=== PATIENT | male | born 1975 | race Caucasian/White ===

== ENCOUNTER 2025-02-09 15:14 | Emergency (ER) | payer OTHER, SELFPAY ==
--- OUTSIDE RECORDS SUMMARY | 2010-08-19 10:00 | XMS_ITS | Continuity of Care Document ---
Author Organization Formerly [facility] Address [address] [place] [phone] Phone Care Team Providers Care Produce Manager Name Role Phone Unavailable Unavailable Unavailable Allergies, Adverse Reactions, Alerts Substance Reaction Status Criticality No Known Allergies Active No Inform ation Medications Medication Instructions Dosage Effective Dates (start - stop) Status Comments promethazine 25 mg Tab take 1/2-1 TID prn nausea as needed 25 MG - Active Lexapro 10 mg Tab take 1 tablet (10MG) by ORAL route every day 10 MG - No Longer Active Procedures Procedure Date OFFICE/OUTPATIENT VISIT, EST Called In Prescription Advance Directives Directive Yes / No Effective Date File Name Resuscitation Not Answered N/A N/A Life Support Not Answered N/A N/A Intubation Not Answered N/A N/A Antibiotics Not Answered N/A N/A IV Fluid Support Not Answered N/A N/A Tube Feed Not Answered N/A N/A Other Directive N/A N/A WARNING:The information contained in this section is historical and is provided for information only and does not constitute a legal document or any assurance that the information is still accurate. Please verify the information with the aguero of the legal document before using it for clinical purposes. Encounters Encounter Description Practice Location Reason(s) For Visit Diagnoses Date Provider Providers Copied on Encounter OFFICE/OUTPA TIENT VISIT, EST [facility], [address] [place] [address], [id number], [place] tel:[phone] [facility] ([facility]) aches (chief complaint) Colitis, enteritis, and gastroenteritis of presumed infectious origin 1 No Information [facility], [address], [place], [place], [id number], [place] tel:[phone] [facility] No Information 0 No Information Family History Family Member Type Diagnosis Age At Onset Father Problem (finding) hypertension Maternal grandfather Problem (finding) Myocardial infa rction Father Problem (finding) diabetes melli tus in first degree relative Paternal grandfather Problem (finding) malignant neopl asm of lung Father Problem (finding) Myocardial infarction Payers Payer name Insurance type Covered democrat ID Authoriza tion(s) [facility] [id number] Social History Type Description Quantity Date Captured Comments Alcohol Use Details No Caffeine Use Details soda 24 oz per day Tobacco Use Status No Information Smoking Status No Information Sex Male Vital Signs Date / Time: Height Weight BMI Pulse Rate Blood Pressure Temperature Respiratory Rate Body Surface Area Head Circumference Head Circ. Percentile Wt./Claude. Percentile BMI percentile Pulse Ox Inhaled Ox 2:25 PM 68.50 in 176.00 lbs 26.3 7 kg/m eter (2) 99 /min 145/92 mm[Hg] 98.10 F Chief Complaint And Reason For Visit From encounter dated '08/19/2010 14:00'. vomiting (chief complaint) aches (chief complaint) Reason For Referral Reason For Referral No Information Plan Of Treatment Date Type Action Status Goal Tobacco cessation counseling completed History Of Present Illness Encounter Date Complaint History Of Prese nt Illness No Information Functional Status Date Functional Assessmen t No Information Instructions Date Instruction Additional Infor mation Take new medication as prescribe d Rest Increase fluids Assessments Type Assessment Date No Information Mental Status Date Cognitive Assessment Orientation - [facility] ed to time, place, person, situation. Patient Care Teams Name Effective Dates (start - stop) Status Members No Information
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
--- OUTSIDE RECORDS SUMMARY | 2019-10-22 06:40 | XMS_ITS | Continuity of Care Document ---
Author Organization [facility] Address [address] [place] [address] Phone Care Team Providers Care Head Of Mathematics Name Role Phone John Rodriguez MD Unavailable Unavailable Medications Medication Instructions Dosage Effective Dates (start - stop) Status Comments Medrol (Anastacio) 4 mg tablets in a dose pack per package by Oral route as directed - Active Procedures Procedure Date NEW PATNT OV DTL EXAM X-RAY OF ELBOW 3 VIEWS X-RAY OF HAND 3 VIEW MIN. Advance Directives Directive Yes / No Effective Date File Name No Information Encounters Encounter Description Practice Location Reason(s) For Visit Diagnoses Date Provider Providers Copied on Encounter NEW PATNT OV DTL EXAM [facility], [address] [facility], [place], [place], [id number], [place] tel:[phone] [facility] left hand and elbow (chief complaint) Chronic gout of left hand, unspecified causeOlecranon bursitis of left elbow Michael Lopez. [address] [place] [address], [id number] , [place]. tel:[phone] Referring Provider: John Taylor, [address], [address] . tel:[phone] Family History Family Member Type Diagnosis Age At Onset Problem (finding) Family history of Arthr itis Problem (finding) Family history of Diabe ricardo mellitus Problem (finding) Family history of Cardi ovascular disease Payers Payer name Insurance type Covered constitution party ID Jacob patrick(s) BCBS [employer] [id number] Social History Type Description Quantity Date Captured Comments Alcohol Use Details Unknown Caffeine Use Details Unknown Tobacco Use Status Smoking Status Current every day smoker Non-Smoking Tobacco Use Details : No Details Available : No Details Available Sex Male Vital Signs Date / Time: Height Weight BMI Pulse Rate Blood Pressure Temperature Respiratory Rate Body Surface Area Head Circumference Head Circ. Percentile Wt./Claude. Percentile BMI percentile Pulse Ox Inhaled Ox 10:40 AM 67.00 in 90.718 kg (200.00 lbs) 31.3 2 kg/m eter (2) 2.07 meter(2) Chief Complaint And Reason For Visit From encounter dated '10/22/2019 10:40'. left hand and elbow (chief complaint) Reason For Referral Reason For Referral No Information Plan Of Treatment Date Type Action Status Referral Ordered: Danyel Rosen -Allopathic & Osteopathic Physicians : Internal Medicine : Cardiovascular Disease (related to Chronic gout of left hand, unspecified cause) ordered Referral Ordered: Danyel Rosen -Allopathic & Osteopathic Physicians : Internal Medicine : Cardiovascular Disease (related to Chronic gout of left hand, unspecified cause) ordered Referral Ordered: Ilda Weiss MD -Rheumatology (related to Chronic gout of left hand, unspecified cause) ordered Referral [facility]erred [facility]: [facility] [address] [place], [phone] Ordered: Referrals: Rheumatology. Ilda Weiss MD. Evaluate and treat ordered Referral Referred To: Danyel Rosen [address] [place] [address] [address] [place], [phone] Ordered: Referrals: Allopathic & Osteopathic Physicians : Internal Medicine : Cardiovascular Disease. Danyel Rosen. Location: [place]. Evaluate and treat ordered Referral Referred To: Danyel Rosen [address] [place] [address] [address] [place], [phone] Ordered: Referrals: Allopathic & Osteopathic Physicians : Internal Medicine : Cardiovascular Disease. Danyel Rosen ordered History Of Present Illness Encounter Date Complaint History Of Prese nt Illness left hand and elbow Functional Status Date Functional Assessmen t No Information Instructions Date Instruction Additional Infor joanne - Patient education available at [email or web address] on the Education tab Related to Olecranon bursitis of left elbow - Medication refills must be requested before 4pm Sunday through Sunday Related to Olecranon bursitis of left elbow Assessments Type Assessment Date assessment Chronic gout of left hand, unspe cified cause assessment Olecranon bursitis of left elbow Patient Care Teams Name Effective Dates (start - stop) Status Members No Information
[2025-02-09] VITALS (24 sets, daily range): BP systolic 133–177; BP diastolic 95–119; PULSE 80–107; TEMP 36.9; O2SAT 93–100; BMI 36.0
--- NOTE | 2025-02-09 15:27 | ECG_ITS ---
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 Measurements Intervals [place] Rate: 98 P: 54 [place]: 128 QRS: 61 QRSD: 80 T: 34 QT: 340 QTc: 395 Interpretive Statements 1100 Sinus rhythm 9110 normal ECG No previous ECG available for comparison Electronically Signed On 02-09-2025 17:12:14 EDT by ROSEANNA MORGAN M.D.
--- NOTE | 2025-02-09 15:29 | ED.GENADUL1 ---
HPI HPI - General Adult General Chief complaint: Chest Pain Stated complaint: CHEST PAIN Time Seen by Provider: 02/09/25 15:19 Source: patient Mode of arrival: ambulance Limitations: no limitations History of Present Illness HPI narrative: 49-year-old male presents to the emergency department for 1-1/2 days of what he describes as chest pain. When asked to point to the area he points to his left lower rib margin. He does not have any substernal pain or generalized abdominal pain. He has had it continuously for a day and a half and has not been vomiting or having constipation. He thinks it might be from the heat. He states he was driving today and had a sharp pain in that region. No fever or cough or injury. Related Data Home Medications ?Medication ?Instructions ?Recorded ?Confirmed allopurinol 200 mg tablet 200 mg PO DAILY 02/09/25 02/09/25 buprenorphine 8 mg-naloxone 2 mg 1 film buccal DAILY 02/09/25 02/09/25 sublingual film (Suboxone) Allergies Allergy/AdvReac Type Severity Reaction Status Date / Time No Known Drug Allergies Allergy Verified 02/09/25 15:26 Opioid HPI Opioid Management Most Recent Opioid Data: Last Pain Scale 5 Today, 17:55 Last MAR Pain Assessment Today, 17:55 Review of Systems ROS Narrative A ten point review of systems is negative except as noted above. PFSH PFSH Social History Little interest or pleasure in doing things: not at all Feeling down, depressed, or hopeless: not at all Exam Narrative Exam Narrative: Nurses note and vital signs reviewed and patient is not hypoxic. General: The patient appears well and in no apparent distress. Patient is resting comfortably on cart. Skin: Warm, dry, no pallor noted. There is no rash noted. Head: Normocephalic, atraumatic Eye: Normal conjunctiva, no drainage Ears, Nose, Mouth, and Throat: oral mucosa is moist. Nares patent. Cardiovascular: Regular Rate and Rhythm. He has reproducible pain of the left lower anterior rib margin. There is no mass bruise or rash in this area Respiratory: Patient is in no distress, no accessory muscle use, lungs are clear to auscultation, no wheezing, rales or rhonchi Back: non-tender GI: Soft and nontender other than at the rib margin. Elsewhere in his abdomen there is no tenderness or masses. Musculoskeletal: The patient has no evidence of calf tenderness, no pitting edema, symmetrical pulses noted bilaterally Neurological: A&O, normal speech Psychiatric: Cooperative Constitutional Vital Signs, click to edit/add: Last Vital Signs Temp 98.4 F 02/09/25 15:17 Pulse 85 02/09/25 18:20 Resp 24 H 02/09/25 18:20 BP 157/102 H 02/09/25 18:00 Pulse Ox 93 L 02/09/25 18:20 O2 Del Method Room Air 02/09/25 15:17 Course Vital Signs Vital signs: Vital Signs Blood Pressure 167/119 H 02/09/25 15:15 Temperature 98.4 F 02/09/25 15:17 Pulse Rate 85 02/09/25 18:20 Respiratory Rate 24 H 02/09/25 18:20 Blood Pressure 157/102 H 02/09/25 18:00 Pulse Oximetry 93 L 02/09/25 18:20 Oxygen Delivery Method Room Air 02/09/25 15:17 Medical Decision Making MDM Narrative Medical decision making narrative: His workup here in [place] 2 sets of troponin is negative. CT of the abdomen is negative. Cause of the symptoms is uncertain and he will be discharged home. The possibility that this is muscle pain was discussed. Treatment diagnosis and follow-up were discussed with the patient. Differential Diagnosis Differential Diagnosis: Myocardial infarction, constipation, colitis, pneumonia Lab Data Lab results reviewed: Yes I reviewed the patient's lab results Labs: Lab Results 02/09/25 02/09/25 02/09/25 Range/Units 15:35 17:18 18:10 WBC 9.5 (4.0-11.0) 10^3/uL RBC 4.48 L (4.70-6.10) 10^6/uL Hgb 13.8 L (14.0-18.0) g/dL Hct 39.9 L (42.0-54.0) % MCV 89.1 (80.0-94.0) fL MCH 30.8 (25.9-34.0) pg MCHC 34.6 (29.9-35.2) g/dL RDW 12.1 (11.0-15.0) % Plt Count 267 (150-450) 10^3/uL MPV 10.2 (9.5-13.5) fL Neut % (Auto) 72.5 (43.0-75.0) % Lymph % (Auto) 18.4 L (20.5-60.0) % [place] % (Auto) 7.8 (1.7-12.0) % Eos % (Auto) 0.4 L (0.9-7.0) % Baso % (Auto) 0.5 (0.2-2.0) % Neut # (Auto) 6.8 H (1.4-6.5) 10^3/uL Lymph # (Auto) 1.7 (1.2-3.8) 10^3/uL [place] # (Auto) 0.7 (0.3-0.8) 10^3/uL Eos # (Auto) 0.0 (0.0-0.7) 10^3/uL Baso # (Auto) 0.1 (0.0-0.1) 10^3/uL Abs Immat Gran (auto) 0.04 H (0.00-0.03) 10^3/uL Imm/Tot Granulo (auto) 0.4 (0.0-0.5) % Sodium 142 (136-145) mmol/L Potassium 4.2 (3.5-5.1) mmol/L Chloride 104 (98-107) mmol/L Carbon Dioxide 32.2 H (21.0-32.0) mmol/L Anion Gap 10.0 BUN 16.0 (7.0-18.0) mg/dL Creatinine 1.13 (0.70-1.30) mg/dL Est GFR ( Amer) >60 (>=60 mL/min/1.73m^2) Est GFR (Non-Af Amer) >60 (>=60 mL/min/1.73m^2) BUN/Creatinine Ratio 14.2 Glucose 98 (74-106) mg/dL Calcium 9.5 (8.5-10.1) mg/dL Total Bilirubin 0.2 (0.2-1.0) mg/dL Direct Bilirubin 0.1 (0.0-0.2) mg/dL AST 15 (15-37) U/L ALT 25 (16-63) U/L Alkaline Phosphatase 107 (46-116) U/L Troponin I High Sens 5.4 5.6 (4.0-76.1) pg/mL Total Protein 7.2 (6.4-8.2) g/dL Albumin 3.6 (3.4-5.0) g/dL Globulin 3.6 g/dL Albumin/Globulin Ratio 1.0 Amylase 73 (25-115) U/L Lipase 27.0 (16.0-77.0) U/L Urine Color Lt. yellow (YELLOW) Urine Clarity Clear (CLEAR) Urine pH 8.0 (5.0-9.0) Ur Specific [place] 1.010 (1.005-1.025) Urine Protein Negative (NEG/TRACE) mg/dL Urine Glucose (UA) Negative (NEGATIVE) mg/dL Urine Ketones Negative (NEGATIVE) mg/dL Urine Occult Blood Negative (NEGATIVE) Urine Nitrite Negative (NEGATIVE) Urine Bilirubin Negative (NEGATIVE) Urine Urobilinogen 0.2 (0.2-1.0) EU/dL Ur Leukocyte Esterase Negative (NEGATIVE) Urine RBC 0-2 (0-2) #/HPF Urine WBC 0-2 A (NONE SEEN) #/HPF Ur Squamous Epith Cells Rare (NONE/RARE) #/LPF Urine Crystals None seen (None Seen) #/HPF Urine Bacteria None seen (NONE SEEN) #/HPF Urine Casts None seen (NONE SEEN) #/LPF Urine Mucus None seen (NONE SEEN) Ur Culture Indicated? No Imaging Data Chest x-ray: Radiologist's impression: ITS Impressions Abdomen/Pelvis CT 02/09/25 16:35 IMPRESSION: No acute findings. Bilateral nephrolithiasis. No obstructive uropathy. No acute diverticulitis. Impression dictated by: Bogdan Lewis M.D. 02/09/2025 5:09 PM Dictation Location: [email or web address] Electronically authenticated by: [id number] Y Date: 02/09/2025 17:09 Chest X-Ray 02/09/25 16:35 IMPRESSION: No acute process. Impression dictated by: Bogdan Lewis M.D. 02/09/2025 5:10 PM Dictation Location: [email or web address] Electronically authenticated by: [id number] Y Date: 02/09/2025 17:10 ECG Data Attestation: I personally reviewed and interpreted this ECG as follows: (EKG on my interpretation shows normal sinus rhythm with a rate of 98 no acute change) Discharge Plan Discharge Chief Complaint: Chest Pain Clinical Impression: Chest pain Patient Disposition: Home, Self-Care Time of Disposition Decision: 18:44 Mode of Transportation: Private Vehicle Prescriptions / Home Meds: No Action buprenorphine-naloxone [Suboxone] 8-2 mg film 1 film buccal DAILY allopurinol 200 mg tablet 200 mg PO DAILY Print Language: Croatian Instructions: Chest Pain (ED) Referrals: Physician,Non-Staff, MD [Primary Care Provider] - 1 week
--- OUTSIDE RECORDS SUMMARY | 2025-02-09 15:32 | XMS_ITS | Patient Health Record ---
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 He also has a history of migr aines Surgical History Surgery Date(Month/Year) ELAS and phlebetomy 01/22 Multiple eye operations as well as ortho pedic procedures shoulder eye x 3 nose hip Foot surgery x 2 Hospitalization History Reason Date(Month/Year) for surgeries only
[2025-02-09 15:44] LABS: Basophils Absolute Auto 0.1 10^3/uL (0.0-0.1); Basophils Percent Auto 0.5 % (0.2-2.0); Eosinophils Percent Auto 0.4 % (0.9-7.0); Hematocrit 39.9 % (42.0-54.0); Hemoglobin 13.8 g/dL (14.0-18.0); Immature Granulocytes Abs Auto 0.04 10^3/uL (0.00-0.03); Immature Granulocytes Pct Auto 0.4 % (0.0-0.5); Lymphocytes Absolute Auto 1.7 10^3/uL (1.2-3.8); Lymphocytes Percent Auto 18.4 % (20.5-60.0); Mean Corpuscular HGB Conc 34.6 g/dL (29.9-35.2); Mean Corpuscular Hemoglobin 30.8 pg (25.9-34.0); Mean Corpuscular Volume 89.1 fL (80.0-94.0); Mean Platelet Volume 10.2 fL (9.5-13.5); Monocytes Absolute Auto 0.7 10^3/uL (0.3-0.8); Monocytes Percent Auto 7.8 % (1.7-12.0); Neutrophils Absolute Auto 6.8 10^3/uL (1.4-6.5); Neutrophils Percent Auto 72.5 % (43.0-75.0); Platelet Count 267 10^3/uL (150-450); Red Blood Count 4.48 10^6/uL (4.70-6.10); Red Cell Distribution Width 12.1 % (11.0-15.0); White Blood Count 9.5 10^3/uL (4.0-11.0)
[2025-02-09 15:52] LABS: BUN Creatinine Ratio 14.2; Calcium 9.5 mg/dL (8.5-10.1); Carbon Dioxide 32.2 mmol/L (21.0-32.0); Chloride 104 mmol/L (98-107); Estimated GFR (African America >60 (>=60 mL/min/1.73m^2); Estimated GFR (Non-African Ame >60 (>=60 mL/min/1.73m^2); Glucose 98 mg/dL (74-106); Potassium 4.2 mmol/L (3.5-5.1); Sodium 142 mmol/L (136-145)
[2025-02-09 15:58] LABS: Alanine Aminotransferase 25 U/L (16-63); Albumin Level 3.6 g/dL (3.4-5.0); Alkaline Phosphatase 107 U/L (46-116); Amylase 73 U/L (25-115); Aspartate Amino Transferase 15 U/L (15-37); Bilirubin Direct 0.1 mg/dL (0.0-0.2); Bilirubin Total 0.2 mg/dL (0.2-1.0); Globulin 3.6 g/dL; Total Protein 7.2 g/dL (6.4-8.2)
--- NOTE | 2025-02-09 16:35 | XR_ITS ---
The [address] [address] Patient Name: OMID DALE MRN: [id number] date: 1975 Sex: M Assigned Patient Location: ED.MAIN Current Patient Location: ED.MAIN Accession/Order Number: [id number] Exam Date: 02/09/2025 17:10 Report Date: 02/09/2025 17:10 At the request of: LEAH WATSON MD Procedure: XR chest 1V Plain film chest Single view HISTORY: Left chest pain COMPARISON: None FINDINGS: SUPPORT DEVICES: None POSTSURGICAL CHANGES: None HEART: Within normal limits PULMONARY HAIDER: Within normal limits MEDIASTINUM: Unremarkable LUNGS AND PLEURA: No acute lung process, pleural effusion or pneumothorax identified. BONY STRUCTURES: Intact ADDITIONAL FINDINGS None XR/XR chest 1V IMPRESSION: No acute process. Impression dictated by: Bogdan Lewis M.D. 02/09/2025 5:10 PM Dictation Location: [place] [address] Electronically authenticated by: [id number] Y Date: 02/09/2025 17:10
--- NOTE | 2025-02-09 16:35 | CT_ITS ---
The [address] [address] Patient Name: OMID DALE MRN: [id number] date: 1975 Sex: M Assigned Patient Location: ED.MAIN Current Patient Location: ED.MAIN Accession/Order Number: [id number] Exam Date: 02/09/2025 17:04 Report Date: 02/09/2025 17:09 At the request of: LEAH WATSON MD Procedure: CT abdomen pelvis w con CT Abdomen and Pelvis withcontrast TECHNIQUE: Axial imaging with 2-D reconstruction.100 cc of Omnipaque 300. The CT exam was performed using one or more the following dose reduction techniques: Automated exposure control, adjustment of the MA and/or Kv according to patient size, or use of the iterative reconstruction technique. COMPARISON: None History: Left anterior chest pain for several days. Left upper quadrant pain. LIMITATIONS: None LOWER THORAX left lung base granuloma LIVER: Hepatic steatosis GALLBLADDER: No gallbladder abnormality identified. BILE DUCTS: No dilatation SPLEEN: Unremarkable PANCREAS: Unremarkable ADRENAL GLANDS: Unremarkable KIDNEYS:17 mm left nonobstructing stone. No hydronephrosis. 3 mm nonobstructing right stone. AORTA: No abdominal aortic aneurysm identified. RETROPERITONEUM: No significant retroperitoneal abnormalities identified. MESENTERY:Unremarkable STOMACH:Unremarkable SMALL BOWEL: The small bowel loops are nondistended. APPENDIX: The appendix is normal. COLON: Unremarkable URINARY BLADDER: Urinary bladder is unremarkable. REPRODUCTIVE SYSTEM: Reproductive structures are unremarkable. PNEUMOPERITONEUM: None PERITONEAL FLUID:None BONY STRUCTURES: Right hip arthroplasty with streak artifact. Limited assessment of the inferior portion of the pelvis. Degenerative change. ABDOMINAL WALL: Unremarkable CT/CT abdomen pelvis w con IMPRESSION: No acute findings. Bilateral nephrolithiasis. No obstructive uropathy. No acute diverticulitis. Impression dictated by: Bogdan Lewis M.D. 02/09/2025 5:09 PM Dictation Location: [email or web address] Electronically authenticated by: [id number] Y Date: 02/09/2025 17:09
[2025-02-09 16:38] LABS: Troponin I High Sensitivity 5.4 pg/mL (4.0-76.1)
[2025-02-09 17:44] LABS: Troponin I High Sensitivity 5.6 pg/mL (4.0-76.1)
[2025-02-09] MEDS: KETOROLAC TROMETHAMINE 30 MG/ML VIAL IVP (17:55)
[2025-02-09 18:25] LABS: Bilirubin Urine NEGATIVE (NEGATIVE); Blood Urine NEGATIVE (NEGATIVE); Clarity Urine CLEAR (CLEAR); Color Urine LT. YELLOW (YELLOW); Glucose Urine UA NEGATIVE (NEGATIVE); Ketones Urine NEGATIVE (NEGATIVE); Leukocyte Esterase Urine NEGATIVE (NEGATIVE); Nitrite Urine NEGATIVE (NEGATIVE); Protein Urine NEGATIVE (NEG/TRACE); Urobilinogen Urine 0.2 EU/dL (0.2-1.0)
[2025-02-09 18:42] LABS: Bacteria Urine NONE SEEN #/HPF (NONE SEEN); Cast Seen? NONE SEEN #/LPF (NONE SEEN); Crystals Seen? None Seen #/HPF (None Seen); Mucus Urine NONE SEEN (NONE SEEN); RBC Urine 0-2 #/HPF (0-2); Squamous Epithelial Cell Urine RARE #/LPF (NONE/RARE); Urine Culture Indicated NO; WBC Urine 0-2 #/HPF (NONE SEEN)
== END 2025-02-09 19:06 | disposition home or self-care (01) ==
PROVIDERS: Emergency Provider Emergency Medicine
DX: R07.9 Chest pain, unspecified (principal)
CPT/HCPCS: 36415; 71045; 74177; 80048; 80076; 81001; 82150; 83690; 84484; 85025; 93005; 96374; 99285; J1885; Q9967